=== PATIENT | female | born 1985 | race Caucasian/White ===

== ENCOUNTER 2021-05-12 13:19 | Emergency (ER) | payer BC ==
[2021-05-12 15:39] LABS: Basophils # (A) 0.1 k/uL (0-0.2); Basophils % (A) 1 %; Eosinophils # (A) 0.2 k/uL (0-0.7); Eosinophils % (A) 1 %; Lymphocytes # (A) 3.3 k/uL (1.0-4.8); Lymphocytes % (A) 23 %; MCH 29.7 pg (25.0-35.0); MCHC 32.7 g/dL (31.0-37.0); MCV 90.7 fL (80.0-100.0); Mean Platelet Volume 8.4; Monocytes # (A) 0.5 k/uL (0-1.0); Monocytes % (A) 4 %; Neutrophils # (A) 9.8 k/uL (1.3-7.7); Neutrophils % (A) 69 %; Platelet Count 288 k/uL (150-450); RDW 12.1 % (11.5-15.5); WBC 14.2 k/uL (3.8-10.6)
[2021-05-12 15:49] LABS: ALT 22 U/L (4-34); AST 23 U/L (14-36); African American GFR (CKD) >90 (>60 ml/min/1.73 sqM); Albumin 4.7 g/dL (3.5-5.0); Alkaline Phosphatase 65 U/L (38-126); Anion Gap 11 mmol/L; Blood Urea Nitrogen 10 mg/dL (7-17); Calcium 10.3 mg/dL (8.4-10.2); Carbon Dioxide 19 mmol/L (22-30); Chloride 108 mmol/L (98-107); Glucose 82 mg/dL (74-99); Non-African American GFR(CKD) 83 (>60 ml/min/1.73 sqM); Potassium 4.7 mmol/L (3.5-5.1); Sodium 138 mmol/L (137-145); Total Bilirubin 0.4 mg/dL (0.2-1.3); Total Protein 7.4 g/dL (6.3-8.2)
[2021-05-12 15:50] LABS: INR 0.9 (<1.2); Prothrombin Time 10.1 sec (9.0-12.0)
[2021-05-12 15:59] LABS: Partial Thromboplastin Time 22.4 sec (22.0-30.0)
[2021-05-12] MEDS ORDERED: KETOROLAC 15 MG/ML 1 ML VIAL IVP STA (17:07)
[2021-05-12] MEDS ORDERED: ONDANSETRON 4 MG/2 ML VIAL IVP STA (17:07)
[2021-05-12] MEDS ORDERED: IBUPROFEN 600 MG TAB PO STA (17:14)
[2021-05-12] MEDS ORDERED: ONDANSETRON ODT 4 MG TAB PO STA (17:14)
--- NOTE | 2021-05-12 17:16 | ED ---
Extremity Problem HPI - General Chief complaint: Extremity Problem,Nontraumatic Stated complaint: Left arm pain/abd ekg/sent by urgent care Time Seen by Provider: 05/12/21 16:35 Source: patient, RN notes reviewed Mode of arrival: ambulatory Limitations: no limitations - History of Present Illness Initial comments: This a 35-year-old female presents emergency from chief complaint left arm issues. She states her last several weeks she's been having which she describes as restless left arm. Patient states that he just feels uneasy at times. She states that he usually happens at nighttime but states today she started having throughout the day chief complaint of some left shoulder pain with no chest pain currently. Patient states that she did have some nausea and became concerned went to urgent care. She states while at urgent care they told her her EKG was abnormal and told her that she absolutely had to go to the hospital. She has no complaints of back pain, chest pain, shortness breath, headache or dizziness currently. - Related Data Home Medications Medication Instructions Recorded Confirmed Medroxyprogesterone Acetate 150 mg IM Q90D 05/12/21 05/12/21 [Depo-Provera] Omeprazole Magnesium [PriLOSEC OTC] 20 mg PO DAILY PRN 05/12/21 05/12/21 diphenhydrAMINE [Benadryl] 25 mg PO HS PRN 05/12/21 05/12/21 Allergies Allergy/AdvReac Type Severity Reaction Status Date / Time No Known Allergies Allergy Verified 05/12/21 16:49 Review of Systems ROS Statement: Those systems with pertinent positive or pertinent negative responses have been documented in the HPI. ROS Other: All systems not noted in ROS Statement are negative. Past Medical History Past Medical History: No Reported History History of Any Multi-Drug Resistant Organisms: None Reported Past Surgical History: Cholecystectomy Past Psychological History: No Psychological Hx Reported Smoking Status: Current every day smoker Past Alcohol Use History: Occasional Past Drug Use History: None Reported General Exam Limitations: no limitations General appearance: alert, in no apparent distress Head exam: Present: atraumatic, normocephalic, normal inspection Eye exam: Present: normal appearance, PERRL, EOMI. Absent: scleral icterus, conjunctival injection, periorbital swelling ENT exam: Present: normal exam, normal oropharynx, mucous membranes moist, TM's normal bilaterally Neck exam: Present: normal inspection, full ROM. Absent: tenderness, meningismus, lymphadenopathy Respiratory exam: Present: normal lung sounds bilaterally. Absent: respiratory distress, wheezes, rales, rhonchi, stridor Cardiovascular Exam: Present: regular rate, normal rhythm, normal heart sounds. Absent: systolic murmur, diastolic murmur, rubs, gallop, clicks GI/Abdominal exam: Present: soft, normal bowel sounds. Absent: distended, tenderness, guarding, rebound, rigid Extremities exam: Present: other (Upper extremity strength equal bilaterally, neurovascular intact.) Course Vital Signs 05/12/21 05/12/21 14:47 17:40 Temperature 98.4 F 98.0 F Pulse Rate 94 84 Respiratory 20 19 Rate Blood Pressure 106/74 122/78 O2 Sat by Pulse 99 97 Oximetry Medical Decision Making - Medical Decision Making Patient had a full workup including labs EKG. Patient has no acute findings. Symptoms more likely related to nerve, paresthesias. Patient is otherwise chest pain negative troponin, EKG is essentially unremarkable. - Lab Data Result diagrams: 05/12/21 14:54 05/12/21 14:54 Lab Results 05/12/21 05/12/21 05/12/21 Range/Units 14:54 14:54 14:54 WBC 14.2 H (3.8-10.6) k/uL RBC 5.40 (3.80-5.40) m/uL Hgb 16.0 (11.4-16.0) gm/dL Hct 49.0 H (34.0-46.0) % MCV 90.7 (80.0-100.0) fL MCH 29.7 (25.0-35.0) pg MCHC 32.7 (31.0-37.0) g/dL RDW 12.1 (11.5-15.5) % Plt Count 288 (150-450) k/uL MPV 8.4 Neutrophils % 69 % Lymphocytes % 23 % Monocytes % 4 % Eosinophils % 1 % Basophils % 1 % Neutrophils # 9.8 H (1.3-7.7) k/uL Lymphocytes # 3.3 (1.0-4.8) k/uL Monocytes # 0.5 (0-1.0) k/uL Eosinophils # 0.2 (0-0.7) k/uL Basophils # 0.1 (0-0.2) k/uL PT 10.1 (9.0-12.0) sec INR 0.9 (<1.2) APTT 22.4 (22.0-30.0) sec Sodium 138 (137-145) mmol/L Potassium 4.7 (3.5-5.1) mmol/L Chloride 108 H (98-107) mmol/L Carbon Dioxide 19 L (22-30) mmol/L Anion Gap 11 mmol/L BUN 10 (7-17) mg/dL Creatinine 0.89 (0.52-1.04) mg/dL Est GFR (CKD-EPI)AfAm >90 (>60 ml/min/1.73 sqM) Est GFR (CKD-EPI)NonAf 83 (>60 ml/min/1.73 sqM) Glucose 82 (74-99) mg/dL Calcium 10.3 H (8.4-10.2) mg/dL Total Bilirubin 0.4 (0.2-1.3) mg/dL AST 23 (14-36) U/L ALT 22 (4-34) U/L Alkaline Phosphatase 65 (38-126) U/L Troponin I (0.000-0.034) ng/mL Total Protein 7.4 (6.3-8.2) g/dL Albumin 4.7 (3.5-5.0) g/dL 05/12/21 Range/Units 14:54 WBC (3.8-10.6) k/uL RBC (3.80-5.40) m/uL Hgb (11.4-16.0) gm/dL Hct (34.0-46.0) % MCV (80.0-100.0) fL MCH (25.0-35.0) pg MCHC (31.0-37.0) g/dL RDW (11.5-15.5) % Plt Count (150-450) k/uL MPV Neutrophils % % Lymphocytes % % Monocytes % % Eosinophils % % Basophils % % Neutrophils # (1.3-7.7) k/uL Lymphocytes # (1.0-4.8) k/uL Monocytes # (0-1.0) k/uL Eosinophils # (0-0.7) k/uL Basophils # (0-0.2) k/uL PT (9.0-12.0) sec INR (<1.2) APTT (22.0-30.0) sec Sodium (137-145) mmol/L Potassium (3.5-5.1) mmol/L Chloride (98-107) mmol/L Carbon Dioxide (22-30) mmol/L Anion Gap mmol/L BUN (7-17) mg/dL Creatinine (0.52-1.04) mg/dL Est GFR (CKD-EPI)AfAm (>60 ml/min/1.73 sqM) Est GFR (CKD-EPI)NonAf (>60 ml/min/1.73 sqM) Glucose (74-99) mg/dL Calcium (8.4-10.2) mg/dL Total Bilirubin (0.2-1.3) mg/dL AST (14-36) U/L ALT (4-34) U/L Alkaline Phosphatase (38-126) U/L Troponin I <0.012 (0.000-0.034) ng/mL Total Protein (6.3-8.2) g/dL Albumin (3.5-5.0) g/dL Disposition Clinical Impression: Cervical radicular pain, Arm paresthesia, left Disposition: HOME SELF-CARE Condition: Stable Instructions (If sedation given, give patient instructions): Arm Pain (ED) Additional Instructions: Please return to the Emergency Department if symptoms worsen or any other concerns. Is patient prescribed a controlled substance at d/c from ED?: No Referrals: Katrin Summers MD [Primary Care Provider] - 1-2 days Time of Disposition: 17:15
[2021-05-12 17:41] VITALS: BP 122/78; PULSE 84; RESP 19; TEMP 98
== END 2021-05-12 17:41 | disposition home or self-care (01) ==
LOC: EC 13:19
DX: R20.2 Paresthesia of skin (principal); M54.12 Radiculopathy, cervical region; F17.200 Nicotine dependence, unspecified, uncomplicated; Z79.899 Other long term (current) drug therapy
CPT/HCPCS: 36415; 80053; 84484; 85025; 85610; 85730; 93005; 99284

== ENCOUNTER → 2021-06-04 | Outpatient (CLI) | payer BC ==
--- NOTE | 2021-06-04 13:18 | XR ---
EXAMINATION TYPE: XR cervical spine comp DATE OF EXAM: 06/04/2021 COMPARISON: None HISTORY: 36-year-old female M5 4.2, cervicalgia, left arm numbness and tingling. TECHNIQUE: 5 views FINDINGS: Mild uncovertebral joint spurring made cervical spine. No significant bony neuroforaminal narrowing i dentified on either side. Reversal of the normal cervical lordosis. Preserved alignment. Disc intersp aces are also maintained. No predental space widening or prevertebral soft tissue swelling. Normal od ontoid view. 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 Reversal of the normal cervical lordosis cou ld be positional or due to muscle spasm.
== END | disposition home or self-care (01) ==
LOC: RADXRMAIN 12:38
PROVIDERS: ATTEND Family Medicine
DX: M47.812 Spondylosis without myelopathy or radiculopathy, cervical region (principal)
CPT/HCPCS: 72050